=== PATIENT | female | born 1990 | race Caucasian/White ===

== ENCOUNTER 2024-04-25 05:37 | Inpatient (IN) ==
[2024-04-25] MEDS ORDERED: Prochlorperazine 5 mg/ml 2 ml VIAL (10 mg) IV PRN (07:17)
[2024-04-25] MEDS ORDERED: Lidocaine 1% VIAL 10 MG/ML 30 ML VIAL INJ PRN (07:17)
[2024-04-25] MEDS ORDERED: Nalbuphine 10 MG/ML 1 ML VIAL IV PRN (07:17)
[2024-04-25 08:30] LABS: ABS Basophils 0.1 10^3/uL (0.0-0.1); ABS Eosinophils 0.2 10^3/uL (0.0-0.5); ABS Lymphocytes 2.2 10^3/uL (1.0-4.8); ABS Monocytes 0.7 10^3/uL (0.0-0.9); ABS Neutrophils 11.9 10^3/uL (1.5-7.6); Eosinophil % 1.3 %; Hematocrit 38.3 % (35-45); Hemoglobin 12.8 g/dL (11.5-14.3); Lymphocyte % 14.5 %; Mean Corpuscular Hemoglobin 28.2 pg (27-33); Mean Corpuscular Hgb Conc 33.4 g/dL (31-36); Mean Corpuscular Volume 84.4 fL (80-97); Mean Platelet Volume 8.3 fL (7.5-11.2); Platelet Count 331 10^3/uL (150-450); Red Blood Count 4.54 10^6/uL (3.63-4.92); Red Cell Distribution Width 13.8 % (12-17)
[2024-04-25 08:58] LABS: Urine Benzodiazepine Screen None Detected (None Detect); Urine Cannabinoids Screen None Detected (None Detect); Urine Opiates Screen None Detected (None Detect)
[2024-04-25] MEDS: Lactated Ringers 1000 ml BAG 1,000 ML IV ONE ×2 (10:00→23:57)
[2024-04-25] MEDS ORDERED: Sodium Citrate/Citric Acid LIQ 15 ML UDC PO PRN (14:39)
[2024-04-25] MEDS ORDERED: Phenylephrine 40 mcg/mL 10mL (400mcg) SYRINGE IV PUSH PRN ×2 (14:39)
[2024-04-25] MEDS ORDERED: Bupivacaine 0.25% SDV PF 10 ML VIAL INJ ONE (15:43)
[2024-04-25] MEDS: OBEPIDURAL (200 ML) 200 ML EPIDURAL SCH (17:00)
[2024-04-25] MEDS: Oxytocin in NS 30,000 MILLI.UNIT/500 ML BAG IV SCH ×2 (17:29→23:57)
[2024-04-25] MEDS: Lactated Ringers 1000 ml BAG 1,000 ML IV SCH ×2 (17:31→17:32)
[2024-04-25] MEDS: Lidocaine 1.5% EPI 1:200,000 30 ML SDV ONE ×2 (17:32→17:33)
[2024-04-25] MEDS: OBEPIDURAL (200 ML) 200 ML EPIDURAL ONE (17:32)
[2024-04-25] MEDS: fentaNYL 100 mcg/2 ml 50 MCG/ML VIAL ONE (17:33)
[2024-04-25] MEDS ORDERED: Glycerin ADULT 2.4 gm SUPP PR PRN (18:11)
[2024-04-25 18:13] LABS: Urine Appearance Clear; Urine Bilirubin Negative (Negative); Urine Blood Negative (Negative); Urine Color Yellow; Urine Glucose Negative (Negative); Urine Ketones 3+ (Negative); Urine Nitrite Negative (Negative); Urine Protein Trace (Negative); Urine Urobilinogen Negative (Negative); Urine pH 8.5 (5.0-8.0)
[2024-04-25 18:23] LABS: Urine Bacteria Absent /HPF (Absent); Urine Red Blood Cell 1+(3-5/hpf) /HPF (0-Trace); Urine Squamous Epithelial Cell Present /HPF (Absent); Urine White Blood Cell Trace(0-5/hpf) /HPF (0-Trace)
[2024-04-25] MEDS ORDERED: Lactated Ringers 1000 ml BAG 1,000 ML IV SCH (19:00)
[2024-04-25] MEDS: Dibucaine 1% OINT 28.35 GM TUBE PR PRN (19:54)
[2024-04-25] MEDS: Witch Hazel PAD JAR TOPICAL PRN (19:54)
[2024-04-25] MEDS: Buffered Lidocaine 1% SYRIN 1 ml INTRADERM ONE (23:57)
[2024-04-26 06:28] LABS: ABS Basophils 0.1 10^3/uL (0.0-0.1); ABS Eosinophils 0.1 10^3/uL (0.0-0.5); ABS Lymphocytes 2.2 10^3/uL (1.0-4.8); ABS Monocytes 0.8 10^3/uL (0.0-0.9); ABS Neutrophils 10.8 10^3/uL (1.5-7.6); Eosinophil % 0.8 %; Hematocrit 33.8 % (35-45); Hemoglobin 11.3 g/dL (11.5-14.3); Lymphocyte % 15.9 %; Mean Corpuscular Hemoglobin 28.2 pg (27-33); Mean Corpuscular Hgb Conc 33.4 g/dL (31-36); Mean Corpuscular Volume 84.4 fL (80-97); Mean Platelet Volume 8.1 fL (7.5-11.2); Platelet Count 283 10^3/uL (150-450)
[2024-04-26 16:27] VITALS: BP 111/56
== END 2024-04-26 18:41 | disposition home or self-care (01) | DRG 560 ==
LOC: MCHOBOUT 05:37 → MCHOB 06:12
PROVIDERS: ADMIT Obstetrics & Gynecology; ATTEND Obstetrics & Gynecology